=== PATIENT | male | born 1960 | race African-American/Black ===

== ENCOUNTER 2024-02-03 23:00 | Emergency (ER) | payer BC, OTHER ==
[2024-02-03 23:08] VITALS: BP 150/86; PULSE 69; RESP 20; TEMP 98.6; BMI 34.2
[2024-02-04 00:14] LABS: BASO % 0.6 % (0-2.0); LYMPH % 41.6 % (8-40); MCHC 33.4 g/dl (32.0-35.9); MEAN PLT VOLUME 7.1 fl (7.5-11.1); MONO % 9.2 % (3.8-10.2); NEUT % 46.6 % (42.8-82.8); PLATELET COUNT 223 10^3/uL (134-434); RBC 4.67 M/mm3 (4.00-5.60); RDW 15.3 % (11.9-15.9); WHITE BLOOD COUNT 4.4 K/mm3 (4.0-10.0)
[2024-02-04 00:29] LABS: INR 1.09 (0.83-1.09); PROTHROMBIN TIME (PATIENT) 12.3 SEC (9.7-13.0)
[2024-02-04 00:32] LABS: ACTIVATED PTT 33.6 SECONDS (25.2-36.5)
[2024-02-04 00:40] LABS: POTASSIUM 3.7 mmol/L (3.5-5.1)
[2024-02-04 00:41] LABS: CALCIUM 9.1 mg/dL (8.5-10.1)
[2024-02-04 00:42] LABS: BLOOD UREA NITROGEN 13.6 mg/dL (7-18); MAGNESIUM 2.2 mg/dL (1.8-2.4)
[2024-02-04 00:47] LABS: BILIRUBIN,TOTAL 0.5 mg/dL (0.2-1); TOT PROT 7.3 g/dl (6.4-8.2)
[2024-02-04 01:32] LABS: HIV INTERPRETATION NEGATIVE (NEGATIVE)
== END 2024-02-04 02:16 | disposition home or self-care (01) ==
LOC: JER 23:00
DX: R04.2 Hemoptysis (principal); Z20.822 Contact with and (suspected) exposure to COVID-19
CPT/HCPCS: 0241U-QW; 36415; 71046-TC-FY; 71250-TC; 74176-TC; 80053; 83735; 85025; 85610; 85730; 86803; 86850; 86900; 86901; 87389; 93005; 93010; 99285-25